=== PATIENT | female | born 1955 | race Caucasian/White ===

== ENCOUNTER 2017-02-13 23:17 | Emergency (ER) | payer BC ==
[~2017-02-13] VITALS: Ht 167.6 cm; Wt 56.3 kg
[2017-02-14 00:59] VITALS: BP 124/80
== END 2017-02-14 00:59 | disposition home or self-care (01) ==
LOC: RME 23:17 → EME 23:17 → RME 02-14 00:59
DX: S61.210A Laceration without foreign body of right index finger without damage to nail, initial encounter (principal); W26.8XXA Contact with other sharp object(s), not elsewhere classified, initial encounter; Z23 Encounter for immunization
CPT/HCPCS: 99281; 99284